=== PATIENT | male | born 1960 | race Caucasian/White ===

== ENCOUNTER 2017-11-27 17:14 | Emergency (ER) | payer BC ==
[2017-11-27] MEDS ORDERED: ASPIRIN 81 MG CHEWABLE TABLET PO ONE (17:20)
[2017-11-27] MEDS ORDERED: 0.9 % SODIUM CHLORIDE 1,000 ML BAG IV ONE (17:21)
[2017-11-27] MEDS ORDERED: METOPROLOL TART 5 MG/5 ML VIAL IV ONE (17:28)
--- NOTE | 2017-11-27 17:28 | Emergency Department Record ---
History of Present Illness - General Chief Complaint: Rapid heartbeat Stated Complaint: HIGH BLOOD PRESSURE,ELEVATED HEART RATE Time Seen by Provider: 11/27/17 17:20 Source: Patient, RN notes reviewed - History of Present Illness Initial Comments: patient felt dizzy at 11:30 am today and laid down and felt better and he drove fome and his brought him to the ED. He admits to 5 beers a day and 2-3 whiskey drinks and he denies smoking cigs but smokes marijuana. Hasn't seen a DrShelley in 10 years and no chest pain just dizzy with walking. - Related Data Home Medications Medication Instructions Recorded Confirmed Last Taken No Home Med [NO HOME MEDS] 11/27/17 11/27/17 Unknown Allergies Allergy/AdvReac Type Severity Reaction Status Date / Time No Known Drug Allergies Allergy Verified 11/27/17 17:47 Review of Systems Reviewed: No additional complaints except as noted below Constitutional: Reports: As per HPI. Denies: Chills, Fever, Malaise, Night sweats, Weakness, Weight change Eyes: Reports: As per HPI. Denies: Eye discharge, Eye pain, Photophobia, Vision change ENT: Reports: As per HPI. Denies: Congestion, Dental pain, Ear pain, Epistaxis , Hearing loss, Throat pain Respiratory: Reports: As per HPI, Dyspnea. Denies: Cough, Hemoptysis, Stridor, Wheezes Cardiovascular: Reports: As per HPI, Palpitations. Denies: Arrhythmia, Chest pain, Dyspnea on exertion, Edema, Murmurs, Orthopnea, Paroxysmal nocturnal dyspnea, Rheumatic Fever, Syncope Endocrine: Reports: As per HPI, Fatigue. Denies: Heat or cold intolerance, Polydipsia, Polyuria Gastrointestinal: Reports: As per HPI. Denies: Abdominal pain, Constipation, Diarrhea, Hematemesis, Hematochezia, Melena, Nausea, Vomiting Genitourinary: Reports: As per HPI. Denies: Dysuria, Frequency, Hematuria, Incontinence, Retention, Testicular pain, Testicular mass, Urgency Musculoskeletal: Reports: As per HPI. Denies: Arthralgia, Back pain, Gout, Joint swelling, Myalgia, Neck pain Skin: Reports: As per HPI. Denies: Bruising, Change in color, Change in hair/ nails, Lesions, Pruritus, Rash Neurological: Reports: As per HPI. Denies: Abnormal gait, Confusion, Headache, Numbness, Paresthesias, Seizure, Tingling, Tremors, Vertigo, Weakness Psychiatric: Reports: As per HPI. Denies: Anxiety, Auditory hallucinations, Depression, Homicidal thoughts, Suicidal thoughts, Visual hallucinations Hematological/Lymphatic: Reports: As per HPI. Denies: Anemia, Blood Clots, Easy bleeding, Easy bruising, Swollen glands Physical Exam - General General Appearance: Alert, Oriented x3, Cooperative, Mild distress - Head Head exam: Normal inspection - Eye Eye exam: Normal appearance, PERRL Pupils: Normal accommodation - ENT ENT exam: Normal exam, Mucous membranes moist, Normal external ear exam, Normal orophraynx, TM's normal bilaterally Ear exam: Normal external inspection. negative: External canal tenderness Nasal Exam: Normal inspection. negative: Discharge, Sinus tenderness Mouth exam: Normal external inspection, Tongue normal Teeth exam: Normal inspection. negative: Dental caries Throat exam: Normal inspection. negative: Tonsillar erythema, Tonsillar exudate - Neck Neck exam: Normal inspection, Full ROM. negative: Tenderness - Respiratory Respiratory exam: Normal lung sounds bilaterally. negative: Respiratory distress - Cardiovascular Cardiovascular Exam: Regular rate, Normal rhythm, Normal heart sounds - GI/Abdominal GI/Abdominal exam: Soft, Normal bowel sounds. negative: Tenderness - Rectal Rectal exam: Deferred - exam: Deferred - Extremities Extremities exam: Normal inspection, Full ROM, Normal capillary refill. negative: Tenderness - Back Back exam: Reports: Normal inspection, Full ROM. Denies: Muscle spasm, Rash noted, Tenderness - Neurological Neurological exam: Alert, Normal gait, Oriented X3, Reflexes normal - Psychiatric Psychiatric exam: Normal affect, Normal mood - Skin Skin exam: Dry, Intact, Normal color, Warm Course - Reevaluation(s) Reevaluation #1: discussed case with Dr. Sheppard. 11/27/17 17:55 Reevaluation #2: discussed case with Dr. St and will transfer to [facility]. 11/27/17 18:37 Medical Decision Making - Data Complexity MDM Data: Labs Ordered and/or Reviewed, X-Ray Ordered and/or Reviewed, EKG Ordered and/or Reviewed (first Ekg atrial flutter fast rate , second EKG atrial flutter rate slowed and 2:1) - Lab Data Result diagrams: 11/27/17 17:30 11/27/17 17:30 Disposition Clinical Impression: Tachycardia, Alcoholism Atrial flutter Qualifiers: Atrial flutter type: typical Qualified Code(s): I48.3 - Typical atrial flutter Disposition: Acute Care Hospital Transfer Condition: (2) Stable Forms: Patient Portal Access Time of Disposition: 18:43 Quality - Quality Measures Quality Measures: N/A - Blood Pressure Screening Does Patient Have Any of the Following: No Blood Pressure Classification: Hypertensive Reading Systolic Measurement: 136 Diastolic Measurement: 99 Screening for High Blood Pressure: < Pre-Hypertensive BP, F/U Documented > [ G8950] Pre-Hypertensive Follow-up Interventions: Referral to alternative/primary care provider.
[2017-11-27 17:35] LABS: BASO % 0.4 % (0-6); EOS % 0.2 % (0-6); GRAN % 75.6 % (47-80); HEMATOCRIT 47.1 % (42.0-52.0); HEMOGLOBIN 15.6 gm/dl (14.0-18.0); LYMPH % 15.8 % (16-45); MEAN CELL VOLUME 97.5 fl (81-97); MEAN CORPUSCULAR HEMOGLOBIN 32.3 pg (27-33); MEAN CORPUSCULAR HGB CONC 33.1 g/dl (32-36); MEAN PLATELET VOLUME 10.2 fl (7.4-10.4); PLATELET COUNT 239 K/uL (130-400); RED BLOOD COUNT 4.83 M/uL (4.40-5.70); RED CELL DISTRIBUTION WIDTH 13.5 % (11.5-14.5); WHITE BLOOD COUNT W/O DIFF 8.1 K/uL (4.2-12.2)
[2017-11-27] MEDS ORDERED: DILTIAZEM 25MG/5ML VIAL IV ONE ×2 (17:49→19:09)
[2017-11-27 17:50] LABS: BLOOD UREA NITROGEN 15 mg/dL (6-20); CREATININE 0.9 mg/dL (0.7-1.2); EST GLOMERULAR FILTRATION RATE > 60 mL/min; PARTIAL THROMBOPLASTIN TIME 26.5 SECONDS (24.5-39.1)
[2017-11-27 17:53] LABS: GLUCOSE,RANDOM 90 mg/dL (74-109)
[2017-11-27] MEDS ORDERED: HEPARIN SODIUM 1000 UNIT/1 ML 10ML VIAL IVP ONE (17:53)
[2017-11-27] MEDS ORDERED: THIAMINE HCL IV 100 MG in 0.9 % SODIUM CHLORIDE 1000ML 1,000 ML IV SCH (18:00)
[2017-11-27 18:32] LABS: ALBUMIN 4.7 g/dL (4.0-5.0); BILIRUBIN,DIRECT 0.2 mg/dL (0-0.3); BILIRUBIN,TOTAL 0.6 mg/dL (0.2-1.0); TOTAL PROTEIN 7.7 g/dL (6.6-8.7)
[2017-11-27] MEDS ORDERED: HEPARIN SODIUM/D5W 25,000 UNITS/500 ML BAG IV SCH (18:45)
[2017-11-27] MEDS ORDERED: DILTIAZEM HCL 125 MG in 0.9 % SODIUM CHLORIDE 100ML 100 ML IV SCH (19:15)
--- NOTE | 2017-11-29 13:09 | RADIOLOGY REPORT ---
EXAM: PORTABLE CHEST HISTORY: TACHYCARDIA. TECHNIQUE: AP portable view of the chest was obtained. Comparison: None. FINDINGS: The heart size is normal. The lungs appear clear of acute infiltrate. No pleural effusion or pneumothorax evident. There is a small rounded density overlying the right mid chest. Without a lateral view it is difficult to determine if this was actually within the chest or overlying either the anterior or posterior aspect of the right mid hemithorax and clinical correlation is suggested. Apical pleural thickening bilaterally. IMPRESSION: 1. SMALL ROUNDED METALLIC BB LIKE DENSITY OVERLYING THE RIGHT MID HEMITHORAX OF UNCERTAIN SIGNIFICANCE ALTHOUGH A SMALL FOREIGN BODY CANNOT BE EXCLUDED. THIS COULD ALSO BE AN ARTIFACT OVERLYING THE PATIENT. 2. NO ACUTE INFILTRATE EVIDENT. SOME APICAL PLEURAL THICKENING BILATERALLY. JOB NUMBER: [id number] MTDD
== END 2017-11-27 20:59 | disposition short-term general hospital (02) ==
LOC: ER 17:14
DX: I47.1 Supraventricular tachycardia (principal); R42 Dizziness and giddiness; F10.20 Alcohol dependence, uncomplicated
CPT/HCPCS: 71045; 80048; 80076; 80320; 84443; 84484; 85025; 85379; 85730; 93005; 93010; 96365; 96366; 96368; 96375; 99285; J3411; J7030

== ENCOUNTER 2017-12-15 16:41 | Observation (INO) | payer BC ==
--- NOTE | 2017-12-15 17:01 | Emergency Department Record ---
History of Present Illness - General Chief Complaint: Syncope Stated Complaint: LIGHTHEADED Time Seen by Provider: 12/15/17 16:52 Source: Patient, Family Mode of Arrival: EMS Limitations: No limitations - History of Present Illness Initial Comments: The patient is here due to having a syncopal episode while shooting pool a half hour ago. He was sitting on a stool and suddenly felt lightheaded and weak and became pale. His was with him and noticed what was happening and caught him before he could fall off the stool. She then held him for 3-5 minutes and tried to get him to wake up. EMS was called and after about 5 minutes the patient started to wake up. After waking he denied any pain, discomfort, SOB, sweating or nausea. The patient does deny any CP, SOB, or MEJÍA prior to the syncopal event and has had no recent illnesses. He did have an episode of rapid Afib about 2.5 weeks ago and was admitted to the hospital for it but converted spontaneously. He did have a normal 2D echo per his on that visit. After EMS arrived on scene the patient was awake and alert and there first BP was 90 systolic. MD Complaint: Collapsed, [place] faint Onset/Timin -: Minutes(s) Prodromal Symptoms: None Duration of Episode: 5 -: Minutes(s) Injuries Sustained Associated with Event: None History: Previous syncopal episode - R[place] Coma Scale Eye Response: (4) Open spontaneously Motor Response: (6) Obeys commands Verbal Response: (5) Oriented [place] Total: 15 - Related Data Home Medications Medication Instructions Recorded Confirmed Last Taken Aspirin [Aspirin EC] 81 mg PO DAILY 12/15/17 12/15/17 1 Day Ago ~12/14/17 Diltiazem HCl [Cardizem Cd] 180 mg PO DAILY 12/15/17 12/15/17 1 Day Ago ~12/14/17 Ondansetron [Zofran Odt] 4 mg PO Q8H 12/15/17 12/15/17 Unknown Allergies Allergy/AdvReac Type Severity Reaction Status Date / Time No Known Drug Allergies Allergy Verified 12/15/17 16:53 Travel Screening - Travel/Exposure Within Last 30 Days Have you traveled within the last 30 days?: No - Travel/Exposure Within Last Year Have you traveled outside the [place] in the last year?: No - Additonal Travel Details Have you been exposed to anyone with a communicable illness?: No - Travel Symptoms Symptom Screening: None Review of Systems Constitutional: Denies: Chills, Fever Eyes: Denies: Eye discharge ENT: Denies: Congestion Respiratory: Denies: Dyspnea Cardiovascular: Reports: Arrhythmia. Denies: Chest pain Endocrine: Reports: Fatigue Gastrointestinal: Denies: Abdominal pain Genitourinary: Denies: Dysuria Musculoskeletal: Denies: Back pain Neurological: Denies: Abnormal gait Past Medical History - SOCIAL HISTORY Smoking Status: Never smoker Alcohol Use: Occasional Alcohol Use Comment: none since 11/27 Drug Use: Rare, Occasional Drug Use Detail:: Marijuana - RESPIRATORY Hx Respiratory Disorders: Yes Hx Bronchitis: Yes - CARDIOVASCULAR Hx Cardio Disorders: No Hx Irregular Heartbeat: Yes (A-Fib new 11/27/17) Comment:: scheduled with Valarie 12/24 - NEURO Hx Neuro Disorders: No - GI Hx GI Disorders: Yes Hx Hiatal Hernia: Yes - Hx Genitourinary Disorders: No - ENDOCRINE Hx Endocrine Disorders: No - MUSCULOSKELETAL Hx Musculoskeletal Disorders: Yes - PSYCH Hx Psych Problems: No - HEMATOLOGY/ONCOLOGY Hx Hematology/Oncology Disorders: No Family Medical History Any Significant Family History?: Yes Hx Stroke: Mother *Stroke Comment: age 49 Physical Exam - General General Appearance: Alert, Oriented x3, Cooperative, No acute distress - Head Head exam: Atraumatic, Normocephalic, Normal inspection - Eye Eye exam: Normal appearance, PERRL, EOMI - ENT Throat exam: Normal inspection. negative: Tonsillar erythema, Tonsillar exudate - Neck Neck exam: Normal inspection, Full ROM. negative: Lymphadenopathy, Tenderness - Respiratory Respiratory exam: Normal lung sounds bilaterally. negative: Respiratory distress - Cardiovascular Cardiovascular Exam: Regular rate, Normal rhythm, Normal heart sounds - GI/Abdominal GI/Abdominal exam: Soft, Normal bowel sounds. negative: Tenderness - Extremities Extremities exam: Normal inspection, Full ROM, Normal capillary refill. negative: Tenderness - Neurological Neurological exam: Alert. negative: Motor sensory deficit - Psychiatric Psychiatric exam: negative: Anxious - Skin Skin exam: negative: Rash Course Vital Signs 12/15/17 16:43 Temperature 97.6 F Pulse Rate 71 Respiratory 20 Rate Blood Pressure 126/83 Pulse Ox 96 - Reevaluation(s) Reevaluation #1: The patient is doing very well at this time. He is resting comfortably with no Cp or SOB. I did discuss the need to monitor him in the hospital overnight and have Cardiology see him tomorrow and he did agree. I also did discuss the case with Dr. Benitez and she does agree to the admission. 12/15/17 17:50 Medical Decision Making - Data Complexity MDM Data: Labs Ordered and/or Reviewed, EKG Ordered and/or Reviewed - Lab Data Result diagrams: 12/15/17 17:10 12/15/17 17:10 - EKG Data -: EKG Interpreted by Me EKG: No Acute Changes, Normal EKG Disposition Disposition: Admit Clinical Impression: Syncope Qualifiers: Syncope type: unspecified Qualified Code(s): R55 - Syncope and collapse Disposition: Still a Patient at [facility] Decision to Admit: Admit from ER Decision to Admit Date: 12/15/17 Decision to Admit Time: 17:52 Accepting Physician: Eli Time Discussed w/Accepting Physician: 17:52 Condition: (2) Stable Forms: Patient Portal Access Time of Disposition: 17:52 Quality - Quality Measures Quality Measures: N/A - Blood Pressure Screening View Details: Yes Does Patient Have Any of the Following: No Blood Pressure Classification: Pre-Hypertensive BP Reading Systolic Measurement: 126 Diastolic Measurement: 83 Screening for High Blood Pressure: < Pre-Hypertensive BP, F/U Documented > [ G8950] Pre-Hypertensive Follow-up Interventions: Referral to alternative/primary care provider.
[2017-12-15 17:17] LABS: BASO % 0.4 % (0-6); EOS % 0.6 % (0-6); GRAN % 74.6 % (47-80); HEMATOCRIT 38.9 % (42.0-52.0); HEMOGLOBIN 12.6 gm/dl (14.0-18.0); LYMPH % 17.3 % (16-45); MEAN CELL VOLUME 99.2 fl (81-97); MEAN CORPUSCULAR HEMOGLOBIN 32.1 pg (27-33); MEAN CORPUSCULAR HGB CONC 32.4 g/dl (32-36); MEAN PLATELET VOLUME 10.2 fl (7.4-10.4); MONO % 7.1 % (0-9); PLATELET COUNT 219 K/uL (130-400); RED BLOOD COUNT 3.92 M/uL (4.40-5.70); RED CELL DISTRIBUTION WIDTH 12.9 % (11.5-14.5); WHITE BLOOD COUNT W/O DIFF 8.1 K/uL (4.2-12.2)
[2017-12-15 17:31] LABS: BILIRUBIN,TOTAL < 0.20 mg/dL (0.2-1.0); BLOOD UREA NITROGEN 15 mg/dL (6-20); EST GLOMERULAR FILTRATION RATE > 60 mL/min
[2017-12-15 17:32] LABS: TOTAL PROTEIN 6.5 g/dL (6.6-8.7)
[2017-12-15 17:34] LABS: GLUCOSE,RANDOM 113 mg/dL (74-109)
[2017-12-15 17:36] LABS: ALT/SGPT 16 U/L (<41); AST/SGOT 18 U/L (10.0-50.0)
[2017-12-15 17:37] LABS: ALB/GLOB RATIO 1.7 (1.1-1.8); ALBUMIN 4.1 g/dL (4.0-5.0); ALKALINE PHOSPHATASE 38 U/L (40-129); CREATINE PHOSPHOKINASE 114 U/L (39-308)
[2017-12-15 17:39] LABS: CKMB 1.9 ng/mL (<6.73)
[2017-12-15] MEDS ORDERED: ACETAMINOPHEN 500 MG TABLET PO PRN (19:10)
[2017-12-15] MEDS: ONDANSETRON 4 MG ODT TABLET PO SCH (19:51)
[2017-12-15 23:44] LABS: CKMB 1.7 ng/mL (<6.73)
[2017-12-16] MEDS: ONDANSETRON 4 MG ODT TABLET PO SCH ×2 (04:55→12:41)
[2017-12-16 06:49] LABS: BASO % 0.4 % (0-6); GRAN % 75.3 % (47-80); HEMATOCRIT 40.4 % (42.0-52.0); HEMOGLOBIN 12.8 gm/dl (14.0-18.0); LYMPH % 17.3 % (16-45); MEAN CELL VOLUME 99.3 fl (81-97); MEAN CORPUSCULAR HEMOGLOBIN 31.4 pg (27-33); MEAN CORPUSCULAR HGB CONC 31.7 g/dl (32-36); MEAN PLATELET VOLUME 10.1 fl (7.4-10.4); PLATELET COUNT 245 K/uL (130-400); RED BLOOD COUNT 4.07 M/uL (4.40-5.70); RED CELL DISTRIBUTION WIDTH 13.1 % (11.5-14.5); WHITE BLOOD COUNT W/O DIFF 6.9 K/uL (4.2-12.2)
[2017-12-16 07:11] LABS: CKMB 1.3 ng/mL (<6.73)
[2017-12-16] MEDS ORDERED: DILTIAZEM 180MG CR CAPSULE PO SCH (10:00)
[2017-12-16] MEDS ORDERED: ASPIRIN 81 MG TABEC PO SCH (10:00)
[2017-12-16] MEDS ORDERED: ONDANSETRON 4 MG ODT TABLET PO PRN (12:39)
--- NOTE | 2017-12-16 13:45 | History & Physical ---
History of Present Illness - Date of Service Date of Service for History & Physical: 12/16/17 - History of Present Illness Admitting Diagnosis: 1. Acute Syncope, R/O Arrythmia History of Present Illness: PMHx: A-fib, tobacco chewer ED course: Pt states that yesterday he went to play pool. He walked in to the facility and sat down on a stool. He then passed out and didn't remember what happened when he awoke. After the episode he felt like he had a cold sweat - the only other time he felt this way was when he was in a-fib 2 weeks ago and had near - syncope. He states that he was newly diagnosed with a-fib 2 weeks ago and was started on cardizem and baby aspirin. He states they also did an echo at the time - per the echo was normal. He spontaneously went back into normal sinus rhythm prior to D/C. His states that when the pt sat down on the stool someone had asked him a question but he had a "blank stare and looked pale". She then pushed him up to prevent him from falling forward and he proceeded to close his eyes and his head dropped downwards. She stated that she "smacked him a few times trying to wake him up" but he didn't respond for 2-3 minutes. EMS was called. When he woke up he was not confused at all, just wondered what had happened. She denies that he was shaking during the event. The pt denies any palpitations, CP, nausea, vomiting, blurred vision, SOB, confusion prior or after the event occurred. VS: wnl Labs: CBC/ CMP overall unremarkable. Trop - x 3. EKG: NSR Pt was placed on tele and admitted for further observation and C/S with cardiology. Today Pt denies any symptoms today. He has no complaints. Travel Screening - Travel/Exposure Within Last 30 Days Have you traveled within the last 30 days?: No - Travel/Exposure Within Last Year Have you traveled outside the [place] in the last year?: No - Additonal Travel Details Have you been exposed to anyone with a communicable illness?: No - Travel Symptoms Symptom Screening: None Review of Systems Constitutional: Denies: Chills, Fever, Malaise, Weakness Eyes: Denies: Eye discharge ENT: Denies: Congestion, Ear pain Respiratory: Denies: Cough, Dyspnea, Wheezes Cardiovascular: Reports: Arrhythmia, Syncope. Denies: Chest pain, Murmurs, Palpitations Endocrine: Denies: Fatigue Gastrointestinal: Denies: Abdominal pain, Constipation, Diarrhea, Melena, Nausea , Vomiting Genitourinary: Denies: Dysuria, Frequency Musculoskeletal: Denies: Back pain Neurological: Denies: Abnormal gait, Confusion, Headache, Seizure, Vertigo, Weakness Psychiatric: Denies: Anxiety, Depression Past Medical History - SOCIAL HISTORY Smoking Status: Never smoker - RESPIRATORY Hx Respiratory Disorders: Yes Hx Bronchitis: Yes - CARDIOVASCULAR Hx Cardio Disorders: No Hx Irregular Heartbeat: Yes (A-Fib new 11/27/17) Comment:: scheduled with Valarie 12/24 - NEURO Hx Neuro Disorders: No - GI Hx GI Disorders: Yes Hx Hiatal Hernia: Yes - Hx Genitourinary Disorders: No - ENDOCRINE Hx Endocrine Disorders: No - MUSCULOSKELETAL Hx Musculoskeletal Disorders: Yes - PSYCH Hx Psych Problems: No - HEMATOLOGY/ONCOLOGY Hx Hematology/Oncology Disorders: No Family Medical History Any Significant Family History?: Yes Hx Stroke: Mother *Stroke Comment: age 49 H&P Meds/Allergies - Allergies Allergies: Allergies Allergy/AdvReac Type Severity Reaction Status Date / Time No Known Drug Allergies Allergy Verified 12/15/17 16:53 - Home Medications Home Medications Medication Instructions Recorded Confirmed Last Taken Aspirin [Aspirin EC] 81 mg PO DAILY 12/15/17 12/15/17 1 Day Ago ~12/14/17 Diltiazem HCl [Cardizem Cd] 180 mg PO DAILY 12/15/17 12/15/17 1 Day Ago ~12/14/17 Ondansetron [Zofran Odt] 4 mg PO Q8H 12/15/17 12/15/17 Unknown - Active Medications Active Medications: Current Medications Acetaminophen (Tylenol 500mg Tab) 500 mg PO Q6H PRN PRN Reason: PAIN - MILD(1-4)/FEVER Aspirin (Ecotrin (Ec)) 81 mg PO DAILY [facility] Last Admin: 12/16/17 10:22 Dose: 81 mg Diltiazem HCl (Cardizem Cd) 180 mg PO DAILY [facility] Last Admin: 12/16/17 10:22 Dose: 180 mg Ondansetron HCl (Zofran Odt) 4 mg PO Q8H PRN PRN Reason: NAUSEA Physical Exam - Vital Signs Vital Signs: Vital Signs - Last 24 Hrs Temp Pulse Pulse Pulse Resp BP BP 12/16/17 08:19 98.4 F 65 18 117/73 12/16/17 08:12 71 18 12/16/17 05:10 97.9 F 61 18 107/71 12/15/17 21:10 98.4 F 65 16 119/73 12/15/17 20:46 67 16 12/15/17 18:36 68 16 12/15/17 18:15 98.2 F 63 18 114/82 12/15/17 17:44 72 16 115/79 12/15/17 16:43 97.6 F 71 20 126/83 Pulse Ox 12/16/17 08:19 97 12/16/17 08:12 12/16/17 05:10 98 12/15/17 21:10 97 12/15/17 20:46 12/15/17 18:36 12/15/17 18:15 96 12/15/17 17:44 97 12/15/17 16:43 96 - General General Appearance: Alert, Oriented x3, Cooperative, No acute distress Limitations: No limitations - Head Head exam: Atraumatic, Normocephalic, Normal inspection - Eye Eye exam: Normal appearance, EOMI - ENT ENT exam: Normal exam Nasal Exam: Normal inspection Mouth exam: Normal external inspection Throat exam: Normal inspection - Neck Neck exam: Normal inspection, Full ROM. negative: Lymphadenopathy, Tenderness - Respiratory Respiratory exam: Normal lung sounds bilaterally. negative: Respiratory distress - Cardiovascular Cardiovascular Exam: Regular rate, Normal rhythm, Normal heart sounds - GI/Abdominal GI/Abdominal exam: Soft, Normal bowel sounds. negative: Tenderness - Rectal Rectal exam: Deferred - exam: Deferred - Extremities Extremities exam: Normal inspection, Full ROM, Normal capillary refill. negative: Pedal edema, Tenderness - Neurological Neurological exam: Alert, Oriented X3. negative: Motor sensory deficit - Psychiatric Psychiatric exam: negative: Anxious, Depressed - Skin Skin exam: negative: Cyanosis, Rash Results - Labs Result Diagrams: 12/16/17 06:36 12/15/17 17:10 Labs Last 24 Hours: Laboratory Results - last 24 hr 12/15/17 12/15/17 12/15/17 17:10 17:10 23:05 WBC 8.1 RBC 3.92 L Hgb 12.6 L Hct 38.9 L MCV 99.2 H MCH 32.1 MCHC 32.4 RDW 12.9 Plt Count 219 MPV 10.2 Gran % 74.6 Lymphocytes % 17.3 Monocytes % 7.1 Eosinophils % 0.6 Basophils % 0.4 Sodium 139 Potassium 4.1 Chloride 100 Carbon Dioxide 30.0 H Anion Gap 9.0 BUN 15 Creatinine 1.0 Estimated GFR > 60 Random Glucose 113 H Calcium 8.7 Magnesium Total Bilirubin < 0.20 L AST 18 ALT 16 Alkaline Phosphatase 38 L Creatine Kinase 114 CK-MB (CK-2) 1.9 1.7 Troponin T < 0.010 < 0.010 Total Protein 6.5 L Albumin 4.1 Globulin 2.4 Albumin/Globulin Ratio 1.7 12/16/17 12/16/17 12/16/17 06:36 06:36 06:36 WBC 6.9 RBC 4.07 L Hgb 12.8 L Hct 40.4 L MCV 99.3 H MCH 31.4 MCHC 31.7 L RDW 13.1 Plt Count 245 MPV 10.1 Gran % 75.3 Lymphocytes % 17.3 Monocytes % 6.0 Eosinophils % 1.0 Basophils % 0.4 Sodium Potassium Chloride Carbon Dioxide Anion Gap BUN Creatinine Estimated GFR Random Glucose Calcium Magnesium 2.1 Total Bilirubin AST ALT Alkaline Phosphatase Creatine Kinase CK-MB (CK-2) 1.3 Troponin T < 0.010 Total Protein Albumin Globulin Albumin/Globulin Ratio VTE H&P Assessment - Risk for VTE Risk for VTE: Yes Risk Level: Low (SCD's in bed) Risk Assessment Date: 12/16/17 Risk Assessment Time: 14:45 VTE Orders Placed or Will Be Placed: Yes Plan - Detailed Diagnosis and Plan (1) Syncope Current Visit: Yes Status: Acute Base Code: R55 - SYNCOPE AND COLLAPSE Priority: High Comment: - Likely 2/2 to heart going in and out of a-fib. - Not cx based on hx for seizure, cataplexy, vasovagal - Cardio c/s'd. - ID ruled out with trops and normal EKG. (2) Paroxysmal A-fib Current Visit: Yes Status: Acute Base Code: I48.0 - PAROXYSMAL ATRIAL FIBRILLATION Comment: - Continue aspirin and cardizem as prescribed. - cardio c/s'd - Tele on - Mag normal - Disposition Pending cardio recs.
--- NOTE | 2017-12-16 16:51 | Discharge Summary ---
Providers Discharge Summary Date: 12/16/17 Date of admission: 12/15/17 18:01 Expected Date of Discharge: 12/16/17 Attending physician: EMMANUEL ZEPEDA M.D. Consults: Consult Orders 12/16/17 08:02 Consult - Cardiology NOW Consulting Provider: NAVARRO CARDENAS Physician Instructions: can see pa Reason For Exam: syncope hx of a-fib Does pt have current crank hand?: Georges Physical Exam - Vital Signs Vital Signs: Vital Signs - Last 24 Hrs Temp Pulse Pulse Resp BP Pulse Ox 12/16/17 13:00 98.8 F 64 18 103/58 96 12/16/17 08:19 98.4 F 65 18 117/73 97 12/16/17 08:12 71 18 12/16/17 05:10 97.9 F 61 18 107/71 98 12/15/17 21:10 98.4 F 65 16 119/73 97 12/15/17 20:46 67 16 12/15/17 18:36 68 16 12/15/17 18:15 98.2 F 63 18 114/82 96 12/15/17 17:44 72 16 115/79 97 - General General Appearance: Alert, Oriented x3, Cooperative, No acute distress Limitations: No limitations - Head Head exam: Atraumatic, Normocephalic, Normal inspection - Eye Eye exam: Normal appearance, EOMI - ENT ENT exam: Normal exam Nasal Exam: Normal inspection Mouth exam: Normal external inspection Throat exam: Normal inspection - Neck Neck exam: Normal inspection, Full ROM. negative: Lymphadenopathy, Tenderness - Respiratory Respiratory exam: Normal lung sounds bilaterally. negative: Respiratory distress - Cardiovascular Cardiovascular Exam: Regular rate, Normal rhythm, Normal heart sounds - GI/Abdominal GI/Abdominal exam: Soft, Normal bowel sounds. negative: Tenderness - Rectal Rectal exam: Deferred - exam: Deferred - Extremities Extremities exam: Normal inspection, Full ROM, Normal capillary refill. negative: Pedal edema, Tenderness - Neurological Neurological exam: Alert, Oriented X3. negative: Motor sensory deficit - Psychiatric Psychiatric exam: negative: Anxious, Depressed - Skin Skin exam: negative: Cyanosis, Rash Hospitalization - Hospitalization Admission Diagnosis: 1. Acute Syncope, R/O Arrythmia - Problem List/Discharge Diagnosis (1) Syncope Current Visit: Yes Status: Acute Base Code: R55 - SYNCOPE AND COLLAPSE Comment: - Likely 2/2 to heart going in and out of a-fib. - Not cx based on hx for seizure, cataplexy, vasovagal - Cardio c/s'd and stated that they will put on 48 hour holter and to continue cardizem. F/u appointment scheduled. - NC ruled out with trops and normal EKG. (2) Paroxysmal A-fib Current Visit: Yes Status: Acute Base Code: I48.0 - PAROXYSMAL ATRIAL FIBRILLATION Comment: - Continue aspirin and cardizem as prescribed. - cardio c/s'd - Tele on - Mag normal - Disposition Pending cardio recs. - Hospitalization Course Disposition: Home, Self-Care Hospital Course: PMHx: A-fib, tobacco chewer ED course: Pt states that yesterday he went to play pool. He walked in to the facility and sat down on a stool. He then passed out and didn't remember what happened when he awoke. After the episode he felt like he had a cold sweat - the only other time he felt this way was when he was in a-fib 2 weeks ago and had near - syncope. He states that he was newly diagnosed with a-fib 2 weeks ago and was started on cardizem and baby aspirin. He states they also did an echo at the time - per the echo was normal. He spontaneously went back into normal sinus rhythm prior to D/C. His states that when the pt sat down on the stool someone had asked him a question but he had a "blank stare and looked pale". She then pushed him up to prevent him from falling forward and he proceeded to close his eyes and his head dropped downwards. She stated that she "smacked him a few times trying to wake him up" but he didn't respond for 2-3 minutes. EMS was called. When he woke up he was not confused at all, just wondered what had happened. She denies that he was shaking during the event. The pt denies any palpitations, CP, nausea, vomiting, blurred vision, SOB, confusion prior or after the event occurred. VS: wnl Labs: CBC/ CMP overall unremarkable. Trop - x 3. EKG: NSR Pt was placed on tele and admitted for further observation and C/S with cardiology. Hospital course: Pt was asymptomatic during his stay. Cardiology was consulted and believe he may be going in and out of a-fib. Recommended 48 hour holter that was put on prior to D/C, continue cardizem as prescribed, and f/u at his scheduled appointment. Pt stable for discharge. Procedures: Cardiology Procedures 12/15/17 16:54 Key Ringer NOW EKG NOW 12/15/17 19:10 Key Ringer .Continuous EKG QDX2@0600 12/16/17 16:07 Holter Monitor NOW 12/16/17 16:08 Cardiolite MPI w/exercise stre ONCE Abnormal Labs: Abnormal Lab Results 12/15/17 12/15/17 12/16/17 Range/Units 17:10 17:10 06:36 RBC 3.92 L 4.07 L (4.40-5.70) M/uL Hgb 12.6 L 12.8 L (14.0-18.0) gm/dl Hct 38.9 L 40.4 L (42.0-52.0) % MCV 99.2 H 99.3 H (81-97) fl MCHC 31.7 L (32-36) g/dl Carbon Dioxide 30.0 H (22-29) mmol/L Random Glucose 113 H (74-109) mg/dL Total Bilirubin < 0.20 L (0.2-1.0) mg/dL Alkaline Phosphatase 38 L (40-129) U/L Total Protein 6.5 L (6.6-8.7) g/dL Condition at Discharge: (1) Good VTE Discharge VTE Reason For No Overlap Therapy: Not Indicated Discharge Medications - Discharge Medications Home Medications: Ambulatory Orders Aspirin [Aspirin EC] 81 mg PO DAILY 12/15/17 [Last Taken 1 Day Ago ~12/14/17] Diltiazem HCl [Cardizem Cd] 180 mg PO DAILY 12/15/17 [Last Taken 1 Day Ago ~11/23] Ondansetron [Zofran Odt] 4 mg PO Q8H 12/15/17 [Last Taken Unknown] Discharge Plan - Discharge Instructions Diet at Discharge: Regular Diet Additional Instructions: Follow up with cardiology as scheduled. Continue medications as prescribed. Quality Measures - Quality Measures Quality Measures: Atrial Fibrillation & Atrial Flutter: Chronic Anticoagulation Therapy, Documentation of Current Medications in Medical Record, Screening for High Blood Pressure and F/U Documented - Current Medications Quality Measure: Measure #130: Documentation of Current Medications Documentation of Current Medications: <Current Medications Documented/Reviewed> [G8427] - Blood Pressure Screening Quality Measure: Screening for High Blood Pressure and Follow-Up Documented Does Patient Have Any of the Following: No Blood Pressure Classification: Pre-Hypertensive BP Reading Systolic Measurement: 126 Diastolic Measurement: 83 Screening for High Blood Pressure: < Normal BP, F/U Not Required > [G8783] - Atrial Fibrillation and Atrial Flutter Quality Measure: Atrial Fibrillation & Atrial Flutter: Chronic Anticoagulation Therapy Does Patient Have Any of the Following: No CHADS2 Risk Stratification: No Risk Factors Risk Stratification Summary: No risk factors or only one moderate risk factor exists. [G8970] Anticoagulation Therapy: Patient Not Eligible [G8970] - Elder Abuse Suspicion Index EASI Reference Information: Tamika GORDON, Jeremy C, Janette D, Дмитрий Bernard.Development and validation of a tool to assist physicians identification of elder abuse: The Elder Abuse Suspicion Index (EASI ). Journal of Elder Abuse and Neglect, 2008; 20 (3): 276-300.
--- NOTE | 2017-12-17 18:24 | Medical Records Consult ---
DATE: 12/16/2017 CONSULTING: HIMANSHU FIORE HISTORY OF PRESENT ILLNESS: Mr. Suazo is a very pleasant 57-year-old male with past medical history of paroxysmal atrial fibrillation/flutter. He had been feeling lightheaded and dizzy so his checked his vitals and noticed his heart rate to beat irregularly when he was first diagnosed. He was evaluated at [facility] at that time and was found to be in atrial flutter with rapid ventricular response. He was started on a Cardizem drip and converted to a normal sinus rhythm on his own after he was transferred to [facility]. He was discharged home with Cardizem CD 180 mg as well as Aspirin 81 mg. His CHADS-VASc score is 0. Echocardiogram during that admission two weeks ago demonstrated preserved LV function with mild LVH, mild MR, and enlarged left atrial side. Patient denies a previous history of hypertension, hyperlipidemia, and diabetes. His mother had a CVA in her 40s and his uncle had an NE in his 50s. Prior to his recent admission, he was drinking 2 -5 beers daily as well as two shots of whiskey daily. He has also chewed tobacco since he was 14 years old but denies cigarette use. Since he was [place] [facility] [place], he had been feeling well up until yesterday. He was playing pool when he had an episode of syncope. Per , he had been sitting down on a stool when he started looking diaphoretic and pale and subsequently passed out. Loss of consciousness was noted to be 2-5 minutes. When EMS arrived, he was noted to be hypotensive but they are unsure if they noted him to be in atrial fibrillation or flutter. When he arrived to [facility], his EKG demonstrated normal sinus rhythm with a rate of 72 beats per minute. His blood pressure has been stable at 119/73 mmHg. Laboratory results were reviewed and there are no significant abnormalities. Troponin has been negative x2. Today, patient is feeling well and he has had no further episodes of presyncope or syncope. He denies chest pain, shortness of breath, lightheadedness, dizziness, palpitations, PND, orthopnea, and peripheral edema. He has quit drinking alcohol since he was discharged home from [facility] two weeks ago. He states that he is staying well- hydrated. He denies any recent sicknesses as well as fever, fatigue, and chills. ALLERGIES: NO KNOWN DRUG ALLERGIES. MEDICATIONS: He is taking; Aspirin 81 mg mg daily Cardizem CD 180 mg daily PAST MEDICAL HISTORY: Paroxysmal atrial fibrillation and flutter. SOCIAL HISTORY: Reports chewing tobacco use, denies cigarette use, prior daily alcohol use, denies illicit drug use. FAMILY HISTORY: Mother had a CVA in her 40s. Uncle had an NE in his 50s. REVIEW OF SYSTEMS: CONSTITUTIONAL; positive for syncope. Denies fevers, chills, sweats, lightheadedness, dizziness. EYE; no recent visual problems. EARS, NOSE, MOUTH, AND THROAT; no ear pain, nasal congestion, sore throat. RESPIRATORY; no shortness of breath, cough. CARDIOVASCULAR; denies chest pain, shortness of breath, palpitations, PND, orthopnea, syncope. PERIPHERAL VASCULAR; no peripheral edema, claudication. GASTROINTESTINAL; denies nausea, vomiting, diarrhea. MUSCULOSKELETAL; denies back pain, neck pain, joint pain, muscle pain , decreased range of motion. INTEGUMENTARY; denies rash, pruritis, and abrasions. NEUROLOGIC; denies any weakness, paresthesias, vision changes. PSYCHIATRIC; no anxiety and depression. PHYSICAL EXAM: VITAL SIGNS: Heart rate 65 beats per minute, blood pressure 119/73 mmHg, temperature is 98.4 degrees Fahrenheit. Respiratory rate 16 breaths per minute, oxygen saturation 97%. GENERAL: Alert and oriented x3, well-nourished, in no acute distress. HEAD: Normocephalic, atraumatic. ENT: EOMI. PERRL. No scleral icterus, erythema, throat free from erythema and lesions. NECK: Supple, nontender, no carotid bruits, no JVD. RESPIRATORY: Clear to auscultation bilaterally. Nonlabored respiration. No wheezing, rhonchi, rales. CARDIAC: Regular rate and rhythm, no murmurs, rubs, or gallops audible. PERIPHERAL VASCULAR: No peripheral edema. No cyanosis, clubbing. Peripheral pulses 2+ and symmetric. ABDOMEN: Soft, nontender, nondistended, normal bowel sounds. SKIN: Skin is warm, dry, and pink. No rashes or lesions noted. MUSCULOSKELETAL: Normal range of motion of all four extremities. Normal gait. NEUROLOGIC: Awake, alert, and oriented x3. PSYCHIATRIC: Cooperative, appropriate mood and affect. LABS: White blood cell count 8.1, hemoglobin is 12.6, hematocrit 38.9, platelets 219. Sodium 139, potassium 4.1, chloride 100, CO2 is 30, BUN 15, creatinine 1, glucose 113. Troponin negative x2. ASSESSMENT: 1. SYNCOPE. 2. PAROXYSMAL ATRIAL FIBRILLATION AND FLUTTER. PLAN: The patient is a 57-year-old male with recently diagnosed paroxysmal atrial fibrillation and flutter. He was admitted to [facility] after an episode of syncope yesterday. He had been sitting on a stool when he, per , became diaphoretic and pale and subsequently passed out. Loss of consciousness was noted to be 2-5 minutes. Patient denies any symptoms beforehand including; lightheadedness, dizziness, palpitations, but he is having difficulty recalling the event. When the patient regained consciousness he was not confused. denies any seizure activity. When he was first diagnosed with atrial fibrillation a couple of weeks ago, he was lightheaded and dizzy and his noted that his heart rate was irregular. Yesterday, upon arrival to the ED, his EKG demonstrated normal sinus rhythm with a rate of 72 beats per minute. His blood pressure has been stable at 119/73 mmHg. Laboratory results have been reviewed and there are no significant abnormalities. Troponin has been negative x2. Recent echocardiogram demonstrated preserved LV function with a mild LVH, mild MR, and enlarged left atrial size. He is scheduled to see Dr. Sheppard next week. We will plan for a stress Cardiolite prior to that appointment. We will also plan for a 48-hour Holter monitor to evaluate how often the patient is going in and out of A-fib. Patient is okay to be discharged from a cardiology standpoint. cc: Dean Sheppard M.D. JOB NUMBER: [id number] MTDD
== END 2017-12-16 18:10 | disposition home or self-care (01) ==
LOC: ER 16:41 → MEDSURG 18:01
PROVIDERS: ADMIT Family Medicine; ATTEND Family Medicine
DX: R55 Syncope and collapse (principal); I48.0 Paroxysmal atrial fibrillation; K44.9 Diaphragmatic hernia without obstruction or gangrene
CPT/HCPCS: 80053; 82550; 82553; 83735; 84484; 85025; 93005; 93010; 93225; 93226; 99220; 99285

== ENCOUNTER 2018-03-21 12:50 | Day surgery (SDC) | payer BC ==
[2018-03-21] MEDS ORDERED: PROPOFOL 10 MG/ML VIAL IV ONE (12:51)
[2018-03-21] MEDS ORDERED: LIDOCAINE 2% MDV (20MG/ML) 20ML VIAL IV ONE (12:51)
--- NOTE | 2018-03-26 12:30 | Operative Note ---
DATE OF SURGERY: 03/21/2018 SURGEON: Mary Abel MD OPERATION: COLONOSCOPY. INDICATIONS: This is a 57-year-old male with average risk for colorectal cancer who presented for screening colonoscopy. POSTOPERATIVE DIAGNOSES: 1. A 3 mm descending colon polyp that was removed by cold biopsy forceps. 2. Otherwise normal colon. ANESTHESIA: Sedation is per Anesthesia. Pulse oximetry was monitored throughout the procedure to maintain O2 saturation of 90% or greater. Supplemental oxygen was administered via nasal cannula. Cardiac and vital signs were monitored throughout the duration of the procedure, and they were stable. The procedure of colonoscopy and risks and alternatives of the procedure, including the risk of bleeding and perforation, among others, were explained to the patient who voiced understanding and agreed to have the procedure done. Physical examination was performed, and the patient was found stable for sedation. PROCEDURE: The patient was placed in the left lateral position. Sedation was initiated. A digital rectal exam was performed and showed some mild external hemorrhoids with no palpable rectal masses. An Olympus PCF-180AL colonoscope was then inserted into the rectum under direct visualization. It was advanced to the cecum without difficulty. The ileocecal valve and appendiceal orifice were identified and photographed. The colonic mucosa was carefully examined upon introduction of the colonoscope. In the descending colon was a 3 mm sessile polyp that was noted and was removed by cold biopsy forceps. There were no lesions noted. The colonoscope was then withdrawn while carefully examining the colonic mucosal surfaces. No other lesions were noted. In the rectum, retroflexion was performed and grade 1 internal hemorrhoids were noted. The colonoscope was then withdrawn and the procedure was terminated. The patient tolerated the procedure well without any immediate complications. The patient remained with stable vital signs and was transferred to the recovery room. RECOMMENDATIONS: 1. The patient should be on a high-fiber diet. 2. The patient is to have a repeat colonoscopy for surveillance in 5 or 10 years depending on the histology of the polyp. Thank you for allowing me to participate in the care of your patient. CC: DO SYEDA Campos
== END 2018-03-21 14:40 | disposition home or self-care (01) ==
LOC: HOP 12:50
PROVIDERS: ATTEND Internal Medicine Gastroenterology
DX: Z12.11 Encounter for screening for malignant neoplasm of colon (principal); K63.5 Polyp of colon

== ENCOUNTER 2019-04-13 08:31 | Day surgery (SDC) | payer BC ==
[~2019-04-13 08:31] MED LIST: ACETAMINOPHEN 1,000 MG/100 ML BTL IVPB ONE; CEFAZOLIN 2 Gram 2 GM/50 ML BAG IVPB ONE
[2019-04-13] MEDS ORDERED: SEVOFLURANE 250 ML INH ONE (08:32)
[2019-04-13] MEDS ORDERED: LIDOCAINE 2% MDV (20MG/ML) 20ML VIAL IV ONE (08:32)
[2019-04-13] MEDS ORDERED: FENTANYL PF 100MCG/2ML VIAL IV ONE (08:32)
[2019-04-13] MEDS ORDERED: 0.9 % SODIUM CHLORIDE 10 ML VIAL IVP ONE (08:32)
[2019-04-13] MEDS ORDERED: KETOROLAC 30 MG/ML VIAL IVP ONE (08:32)
[2019-04-13] MEDS ORDERED: DEXAMETHASONE 4 MG/ML 1ML VIAL IVP ONE (08:32)
[2019-04-13] MEDS ORDERED: PROPOFOL 10 MG/ML VIAL IV ONE (08:32)
[2019-04-13] MEDS ORDERED: MIDAZOLAM HCL 2MG/2ML VIAL IV ONE (08:32)
[2019-04-13] MEDS ORDERED: ROPIVACAINE HCL (NAROPIN) /PF 5MG/ML 20ML VIAL IV ONE (08:32)
[2019-04-13] MEDS ORDERED: ONDANSETRON HCL IV 4 MG/2 ML VIAL IVP ONE (08:32)
[2019-04-13] MEDS ORDERED: RINGERS SOLUTION,LACTATED 1,000 ML IV ONE ×2 (09:17→10:45)
[2019-04-13] MEDS ORDERED: BUPIVACAINE 0.25% W/EPI MPF 30ML VIAL SQ ONE (10:51)
[2019-04-13] MEDS ORDERED: HYDROCODONE/APAP 5/325MG TABLET PO ONE (11:34)
--- NOTE | 2019-04-13 17:30 | Operative Note ---
DATE OF SURGERY: 04/13/2019 SURGEON: Jim Gutiérrez DO PREOPERATIVE DIAGNOSIS: Reducible bilateral inguinal hernias. POSTOPERATIVE DIAGNOSIS: Reducible bilateral inguinal hernias, direct. OPERATION: Open bilateral inguinal herniorrhaphy with mesh. PROCEDURE: The patient is a 59-year-old male who was brought to the operating room and placed in a supine position. General anesthesia was administered per the department of anesthesia. The patient's inguinal region was shaved of hair and prepped and draped in a sterile fashion. At this time, adequate timeout was performed. He did receive preoperative inguinal block per department of anesthesia as well as antibiotic. Starting on the left, the skin was anesthetized with a total of 5 mL of 0.25% Sensorcaine with epinephrine. A 3.5 cm oblique incision was made. This was carried down to the aponeurosis of the external oblique. This was cleaned off. A janae was made with a scalpel blade and enlarged through the superficial inguinal ring with Metzenbaum scissors. Care was taken not to injure the underlying ilioinguinal nerve or spermatic cord. At this time, superior and inferior flaps were developed and a [place] was placed on the spermatic cord. This was dissected free from the underlying direct hernia and reflected in a cephalad direction. Clean circumferential fascial edges were obtained. Cremasteric fibers were taken down. There was no indirect hernia. At this time, the floor was imbricated in a Bassini-type fashion. Over this, a right-sided ProGrip mesh was placed. We had excellent overlap at the pubic tubercle. The mesh was pre-notched to accompany the deep inguinal ring. This was sutured in place with 2-0 Vicryl. The aponeurosis was then closed with 2-0 Vicryl, the Pedro layer was closed with 3-0 Vicryl, and skin was closed with 4-0 Vicryl. Attention now turned to the opposite side where an identical procedure was done. The patient had mirrored pathology with a direct hernia noted. Again, this was repaired in the exact same fashion. The patient was taken to the recovery room in stable condition. FINDINGS ON SURGERY: Bilateral inguinal hernias, direct, repaired as above. MTDD
== END 2019-04-13 12:07 | disposition home or self-care (01) ==
LOC: SUR 08:31
PROVIDERS: ATTEND Surgery
DX: K40.20 Bilateral inguinal hernia, without obstruction or gangrene, not specified as recurrent (principal); I48.91 Unspecified atrial fibrillation; Z79.01 Long term (current) use of anticoagulants; E78.00 Pure hypercholesterolemia, unspecified
CPT/HCPCS: 76942; J1885; J2405; J7120

== ENCOUNTER 2019-05-20 23:33 | Observation (INO) | payer BC ==
[2019-05-21] MEDS ORDERED: DILTIAZEM 25MG/5ML VIAL IV ONE (00:01)
[2019-05-21 00:12] LABS: ABSOLUTE NEUTROPHIL COUNT 4.48; BASO % 0.4 % (0-6); GRAN % 62.4 % (47-80); HEMATOCRIT 38.1 % (42.0-52.0); HEMOGLOBIN 11.8 gm/dl (14.0-18.0); LYMPH % 23.3 % (16-45); MEAN CELL VOLUME 96.2 fl (81-97); MEAN CORPUSCULAR HEMOGLOBIN 29.7 pg (27-33); MEAN PLATELET VOLUME 10.8 fl (7.4-10.4); MONO % 8.9 % (0-9); PLATELET COUNT 180 K/uL (130-400); RED BLOOD COUNT 3.96 M/uL (4.40-5.70); RED CELL DISTRIBUTION WIDTH 13.6 % (11.5-14.5); WHITE BLOOD COUNT W/O DIFF 7.2 K/uL (4.2-12.2)
--- NOTE | 2019-05-21 00:20 | Emergency Department Record ---
History of Present Illness - General Chief Complaint: Arrythmia/Palpitations Stated Complaint: AFIB Time Seen by Provider: 05/20/19 23:47 Source: Patient Mode of Arrival: Ambulatory Limitations: No limitations - History of Present Illness Initial Comments: pt was sitting on toilet when he noticed feeling lightheaded and the lights got dimmer. he thought he was in afib as this has happened to him before and he has passed out with it before. his checked him and found his hr to be irregular and at 164 MD Complaint: Atrial fibrillation, Irregular heart beat, Palpitations Onset/Timin -: Minutes(s) Context: Awoke with symptoms Arrythmia History: Atrial fibrillation Associated Symptoms: Denies other symptoms Treatments Prior to Arrival: Calcium channel ameya - Related Data Home Medications Medication Instructions Recorded Confirmed Last Taken Atorvastatin Calcium [Lipitor] 40 mg PO DAILY 05/20/19 05/20/19 Unknown Allergies Allergy/AdvReac Type Severity Reaction Status Date / Time No Known Drug Allergies Allergy Verified 05/20/19 23:47 Travel/Exposure Screening - Travel/Exposure Within Last 30 Days Have you traveled within the last 30 days?: No - Travel/Exposure Within Last Year Have you traveled outside the [place] in the last year?: No - Additonal Travel/Exposure Details Have you been exposed to anyone with a communicable illness?: No - Travel Symptoms Symptom Screening: None Review of Systems Reviewed: No additional complaints except as noted below Constitutional: Reports: As per HPI. Denies: Chills, Fever, Malaise, Night sweats, Weakness, Weight change Eyes: Reports: As per HPI. Denies: Eye discharge, Eye pain, Photophobia, Vision change ENT: Reports: As per HPI. Denies: Congestion, Dental pain, Ear pain, Epistaxis, Hearing loss, Throat pain Respiratory: Reports: As per HPI. Denies: Cough, Dyspnea, Hemoptysis, Stridor, Wheezes Cardiovascular: Reports: As per HPI, Arrhythmia, Palpitations. Denies: Chest pain, Dyspnea on exertion, Edema, Murmurs, Orthopnea, Paroxysmal nocturnal dyspnea, Rheumatic Fever, Syncope Endocrine: Reports: As per HPI. Denies: Fatigue, Heat or cold intolerance, Polydipsia, Polyuria Gastrointestinal: Reports: As per HPI. Denies: Abdominal pain, Constipation, Diarrhea, Hematemesis, Hematochezia, Melena, Nausea, Vomiting Genitourinary: Reports: As per HPI. Denies: Dysuria, Frequency, Hematuria, Incontinence, Retention, Testicular pain, Testicular mass, Urgency Musculoskeletal: Reports: As per HPI. Denies: Arthralgia, Back pain, Gout, Joint swelling, Myalgia, Neck pain Skin: Reports: As per HPI. Denies: Bruising, Change in color, Change in hair/nails, Lesions, Pruritus, Rash Neurological: Reports: As per HPI. Denies: Abnormal gait, Confusion, Headache, Numbness, Paresthesias, Seizure, Tingling, Tremors, Vertigo, Weakness Psychiatric: Reports: As per HPI. Denies: Anxiety, Auditory hallucinations, Depression, Homicidal thoughts, Suicidal thoughts, Visual hallucinations Hematological/Lymphatic: Reports: As per HPI. Denies: Anemia, Blood Clots, Easy bleeding, Easy bruising, Swollen glands Past Medical History - SOCIAL HISTORY Smoking Status: Never smoker Alcohol Use: None Drug Use Detail:: Marijuana - RESPIRATORY Hx Respiratory Disorders: Yes Hx Bronchitis: Yes - CARDIOVASCULAR Hx Cardio Disorders: Yes Hx Abnormal EKG: Yes Hx Irregular Heartbeat: Yes (A FIB 2 EPISODES 2018 RESOLVED W MEDS NO REOCCURANCE) - NEURO Hx Neuro Disorders: No Hx CVA: No - GI Hx GI Disorders: Yes Hx Abdominal Pain: No Hx Reflux: No Hx Hiatal Hernia: Yes Hx Nausea/Vomiting: No Hx of Polyps: Yes - Hx Genitourinary Disorders: No Hx Bladder Problem: No Hx Kidney Stones: No Hx Prostate Problems: No Hx Renal Disease: No Hx UTI: No - ENDOCRINE Hx Endocrine Disorders: No Hx Diabetes: No Hx Thyroid Disease: No - MUSCULOSKELETAL Hx Musculoskeletal Disorders: Yes Hx Arthritis: No - PSYCH Hx Psych Problems: No Hx Anxiety: No Hx Depression: No - HEMATOLOGY/ONCOLOGY Hx Hematology/Oncology Disorders: No Hx Bruising: No Hx Cancer: No Hx Chemotherapy: No Hx Radiation Therapy: No Hx Clotting Problems: No Hx Blood Transfusions: No Hx Blood Transfusion Reaction: No Family Medical History Any Significant Family History?: No Hx Stroke: Mother *Stroke Comment: age 49 Physical Exam - General General Appearance: Alert, Oriented x3, Cooperative, Mild distress - Head Head exam: Normal inspection - Eye Eye exam: Normal appearance, PERRL, EOMI Pupils: Normal accommodation - ENT ENT exam: Normal exam, Mucous membranes moist, Normal external ear exam, Normal orophraynx Ear exam: Normal external inspection. negative: External canal tenderness Nasal Exam: Normal inspection. negative: Discharge, Sinus tenderness Mouth exam: Normal external inspection, Tongue normal Teeth exam: Normal inspection. negative: Dental caries Throat exam: Normal inspection. negative: Tonsillar erythema, Tonsillar exudate - Neck Neck exam: Normal inspection, Full ROM. negative: Tenderness - Respiratory Respiratory exam: Normal lung sounds bilaterally. negative: Respiratory d istress - Cardiovascular Cardiovascular Exam: Normal heart sounds, Irregular rhythm, Tachycardia - GI/Abdominal GI/Abdominal exam: Soft, Normal bowel sounds. negative: Tenderness - Rectal Rectal exam: Deferred - exam: Deferred - Extremities Extremities exam: Normal inspection, Full ROM, Normal capillary refill. negative: Tenderness - Back Back exam: Reports: Normal inspection, Full ROM. Denies: Muscle spasm, Rash noted, Tenderness - Neurological Neurological exam: Alert, CN II-XII intact, Normal gait, Oriented X3 - Psychiatric Psychiatric exam: Normal affect, Normal mood - Skin Skin exam: Dry, Intact, Normal color, Warm Course Vital Signs 05/20/19 05/20/19 23:40 23:54 Temperature 97.8 F Pulse Rate [ 116 H 144 H Pulse Ox Probe] Respiratory 20 22 Rate Blood Pressure 172/91 127/73 [Left Arm] Pulse Ox 96 - Reevaluation(s) Reevaluation #1: 05/21/19 01:27 pt spontaneously converted tosr just as he was admitted Medical Decision Making - Lab Data Result diagrams: 05/21/19 00:00 05/21/19 00:00 Lab Results 05/21/19 Range/Units 00:00 WBC 7.2 (4.2-12.2) K/uL RBC 3.96 L (4.40-5.70) M/uL Hgb 11.8 L (14.0-18.0) gm/dl Hct 38.1 L (42.0-52.0) % MCV 96.2 (81-97) fl MCH 29.7 (27-33) pg MCHC 31.0 L (32-36) g/dl RDW 13.6 (11.5-14.5) % Plt Count 180 (130-400) K/uL MPV 10.8 H (7.4-10.4) fl Gran % 62.4 (47-80) % Lymphocytes % 23.3 (16-45) % Monocytes % 8.9 (0-9) % Eosinophils % 5.0 (0-6) % Basophils % 0.4 (0-6) % Absolute Neutrophils 4.48 Disposition Disposition: Admit Clinical Impression: Paroxysmal A-fib Disposition: Still a Patient at [facility] Decision to Admit: Admit from ER Decision to Admit Date: 05/21/19 Decision to Admit Time: 01:09 Forms: Patient Portal Access Quality - Quality Measures Quality Measures: N/A - Blood Pressure Screening Does Patient Have Any of the Following: No Blood Pressure Classification: Normal BP Reading Systolic Measurement: 111 Diastolic Measurement: 72 Screening for High Blood Pressure: < Normal BP, F/U Not Required > [G8783]
[2019-05-21 00:24] LABS: BLOOD UREA NITROGEN 16 mg/dL (6-20); EST GLOMERULAR FILTRATION RATE > 60 mL/min
[2019-05-21 00:25] LABS: TOTAL PROTEIN 7.1 g/dL (6.6-8.7)
[2019-05-21 00:27] LABS: GLUCOSE,RANDOM 103 mg/dL (74-109)
[2019-05-21 00:29] LABS: ALB/GLOB RATIO 1.5 (1.1-1.8); ALBUMIN 4.3 g/dL (4.0-5.0); ALKALINE PHOSPHATASE 52 U/L (40-129); ALT/SGPT 18 U/L (<41); AST/SGOT 18 U/L (10.0-50.0)
[2019-05-21 00:30] LABS: CREATINE PHOSPHOKINASE 228 U/L (39-308)
[2019-05-21 00:31] LABS: CKMB 2.6 ng/mL (<6.73)
[2019-05-21] MEDS ORDERED: HEPARIN SODIUM 1000 UNIT/1 ML 10ML VIAL IVP ONE (00:57)
[2019-05-21] MEDS ORDERED: HEPARIN SODIUM/D5W 25,000 UNITS/500 ML BAG IV SCH (01:00)
[2019-05-21] MEDS ORDERED: TEMAZEPAM 15 MG CAPSULE PO PRN (01:34)
[2019-05-21] MEDS ORDERED: ONDANSETRON 4 MG ODT TABLET PO SCH (01:34)
[2019-05-21] MEDS ORDERED: ACETAMINOPHEN 500 MG TABLET PO PRN (01:34)
[2019-05-21] MEDS ORDERED: ONDANSETRON 4 MG ODT TABLET PO PRN (02:15)
[2019-05-21 08:21] LABS: THYROID STIMULATING HORMONE 2.58 uIU/mL (0.270-4.20)
[2019-05-21] MEDS ORDERED: ASPIRIN 81 MG TABEC PO SCH (10:00)
[2019-05-21] MEDS ORDERED: DILTIAZEM 180MG CR CAPSULE PO SCH (10:00)
--- NOTE | 2019-05-21 11:14 | History & Physical ---
History of Present Illness - Date of Service Date of Service for History & Physical: 05/21/19 - History of Present Illness Admitting Diagnosis: paroxsmal afib w lightheadedness History of Present Illness: Pt presented to ED after episode of feeling faint while he was on the commode. He states that he knew "something wasn't right" He was dx with a-fib roughly 1.5 years ago after syncopal episode. He states that he saw Dr. Sheppard outpt but hadn't had any issues since then. Pt was in A-fib in the ED with pulse of 150's. He spontaneously converted back to normal sinus rhythm just prior to receiving an additional dose of IV cardizem. He has been in sinus rhythm since then. He states that he had hernia surgery roughly 6 weeks ago. He did use norco for the first two weeks but no new medications since then. States that he doesn't use any drugs or alcohol. States that he is a non-smoker. Currently asymptomatic at this time. Labs: negative for abnormality. Current VS: wnl. Travel/Exposure Screening - Travel/Exposure Within Last 30 Days Have you traveled within the last 30 days?: No - Travel/Exposure Within Last Year Have you traveled outside the [place] in the last year?: No - Additonal Travel/Exposure Details Have you been exposed to anyone with a communicable illness?: No - Travel Symptoms Symptom Screening: None Review of Systems Constitutional: Reports: As per HPI. Denies: Chills, Fever, Malaise, Night swea ts, Weakness, Weight change Eyes: Reports: As per HPI. Denies: Eye discharge, Eye pain, Photophobia, Vision change ENT: Reports: As per HPI. Denies: Congestion, Dental pain, Ear pain, Epistaxis, Hearing loss, Throat pain Respiratory: Reports: As per HPI. Denies: Cough, Dyspnea, Hemoptysis, Stridor, Wheezes Cardiovascular: Reports: As per HPI, Arrhythmia, Palpitations. Denies: Chest pain, Dyspnea on exertion, Edema, Murmurs, Orthopnea, Paroxysmal nocturnal dyspnea, Rheumatic Fever, Syncope Endocrine: Reports: As per HPI. Denies: Fatigue, Heat or cold intolerance, P olydipsia, Polyuria Gastrointestinal: Reports: As per HPI, Abdominal pain (mild from hernia repair). Denies: Constipation, Diarrhea, Hematemesis, Hematochezia, Melena, Nausea, Vomiting Genitourinary: Reports: As per HPI. Denies: Dysuria, Frequency, Hematuria, Incontinence, Retention, Testicular pain, Testicular mass, Urgency Musculoskeletal: Reports: As per HPI. Denies: Arthralgia, Back pain, Gout, Joint swelling, Myalgia, Neck pain Skin: Reports: As per HPI. Denies: Bruising, Change in color, Change in hair/nails, Lesions, Pruritus, Rash Neurological: Reports: As per HPI. Denies: Abnormal gait, Confusion, Headache, Numbness, Paresthesias, Seizure, Tingling, Tremors, Vertigo, Weakness Psychiatric: Reports: As per HPI. Denies: Anxiety, Auditory hallucinations, Depression, Homicidal thoughts, Suicidal thoughts, Visual hallucinations Hematological/Lymphatic: Reports: As per HPI. Denies: Anemia, Blood Clots, Easy bleeding, Easy bruising, Swollen glands Past Medical History - SOCIAL HISTORY Smoking Status: Never smoker Alcohol Use: None Drug Use: None Drug Use Detail:: Marijuana - RESPIRATORY Hx Respiratory Disorders: Yes Hx Bronchitis: Yes - CARDIOVASCULAR Hx Cardio Disorders: Yes Hx Abnormal EKG: Yes Hx Irregular Heartbeat: Yes (A FIB 2 EPISODES 2018 RESOLVED W MEDS NO REOCCURANCE) - NEURO Hx Neuro Disorders: No Hx CVA: No - GI Hx GI Disorders: Yes Hx Abdominal Pain: No Hx Reflux: No Hx Hiatal Hernia: Yes Hx Nausea/Vomiting: No Hx of Polyps: Yes - Hx Genitourinary Disorders: No Hx Bladder Problem: No Hx Kidney Stones: No Hx Prostate Problems: No Hx Renal Disease: No Hx UTI: No - ENDOCRINE Hx Endocrine Disorders: No Hx Diabetes: No Hx Thyroid Disease: No - MUSCULOSKELETAL Hx Musculoskeletal Disorders: Yes Hx Arthritis: No - PSYCH Hx Psych Problems: No Hx Anxiety: No Hx Depression: No - HEMATOLOGY/ONCOLOGY Hx Hematology/Oncology Disorders: No Hx Bruising: No Hx Cancer: No Hx Chemotherapy: No Hx Radiation Therapy: No Hx Clotting Problems: No Hx Blood Transfusions: No Hx Blood Transfusion Reaction: No Family Medical History Any Significant Family History?: Yes Hx Stroke: Mother *Stroke Comment: age 49 H&P Meds/Allergies - Allergies Allergies: Allergies Allergy/AdvReac Type Severity Reaction Status Date / Time No Known Drug Allergies Allergy Verified 05/20/19 23:47 - Home Medications Home Medications Medication Instructions Recorded Confirmed Last Taken Atorvastatin Calcium [Lipitor] 40 mg PO QHS 05/20/19 05/21/19 05/20/19 22:00 - Active Medications Active Medications: Current Medications Acetaminophen (Tylenol 500mg Tab) 1,000 mg PO Q6H PRN PRN Reason: PAIN - MILD(1-4)/FEVER Aspirin (Ecotrin (Ec)) 81 mg PO DAILY [facility] Last Admin: 05/21/19 09:37 Dose: 81 mg Documented by: Atorvastatin Calcium (Lipitor) 40 mg PO QHS [facility] Diltiazem HCl (Cardizem Cd) 180 mg PO DAILY [facility] Last Admin: 05/21/19 09:37 Dose: 180 mg Documented by: Heparin Sodium/Dextrose (Heparin Sodium/D5w) 25,000 units in 500 mls @ 18.416 mls/hr IV TITRATE [facility]; Protocol Last Admin: 05/21/19 01:13 Dose: 14 units/kg/hr, 18.416 mls/hr Documented by: Ondansetron HCl (Zofran Odt) 4 mg PO Q8H PRN PRN Reason: NAUSEA/VOMITING Temazepam (Restoril) 15 mg PO QHS PRN PRN Reason: INSOMNIA Physical Exam - Vital Signs Vital Signs: Vital Signs - Last 24 Hrs Temp Pulse Resp BP Pulse Ox 05/21/19 07:59 98.6 F 67 16 102/65 97 05/21/19 04:00 98.6 F 70 16 94/56 98 05/21/19 01:34 98.7 F 82 18 106/66 97 05/21/19 01:10 83 18 123/73 05/21/19 00:44 92 H 20 111/72 05/21/19 00:20 114 H 20 134/68 05/20/19 23:54 144 H 22 127/73 05/20/19 23:40 97.8 F 116 H 20 172/91 96 - General General Appearance: Alert, Oriented x3, Cooperative, No acute distress Limitations: No limitations - Head Head exam: Normal inspection - Eye Eye exam: Normal appearance, EOMI Pupils: Normal accommodation - ENT ENT exam: Normal exam, Mucous membranes moist, Normal external ear exam, Normal orophraynx Ear exam: Normal external inspection. negative: External canal tenderness Nasal Exam: Normal inspection. negative: Discharge, Sinus tenderness Mouth exam: Normal external inspection, Tongue normal Teeth exam: Normal inspection. negative: Dental caries Throat exam: Normal inspection. negative: Tonsillar erythema, Tonsillar exudate - Neck Neck exam: Normal inspection, Full ROM. negative: Tenderness - Respiratory Respiratory exam: Normal lung sounds bilaterally. negative: Respiratory distress - Cardiovascular Cardiovascular Exam: Regular rate, Normal rhythm, Normal heart sounds - GI/Abdominal GI/Abdominal exam: Soft, Normal bowel sounds. negative: Tenderness - Rectal Rectal exam: Deferred - exam: Deferred - Extremities Extremities exam: Normal inspection, Full ROM, Normal capillary refill. negative: Tenderness - Back Back exam: Reports: Normal inspection, Full ROM. Denies: Muscle spasm, Rash noted, Tenderness - Neurological Neurological exam: Alert, CN II-XII intact, Normal gait, Oriented X3 - Psychiatric Psychiatric exam: Normal affect, Normal mood - Skin Skin exam: Dry, Intact, Normal color, Warm Results - Labs Result Diagrams: 05/21/19 00:00 05/21/19 00:00 Labs Last 24 Hours: Laboratory Results - last 24 hr 05/21/19 05/21/19 05/21/19 00:00 00:00 00:00 WBC 7.2 RBC 3.96 L Hgb 11.8 L Hct 38.1 L MCV 96.2 MCH 29.7 MCHC 31.0 L RDW 13.6 Plt Count 180 MPV 10.8 H Gran % 62.4 Lymphocytes % 23.3 Monocytes % 8.9 Eosinophils % 5.0 Basophils % 0.4 Absolute Neutrophils 4.48 APTT 25.9 Sodium 141 Potassium 4.1 Chloride 101 Carbon Dioxide 29.0 Anion Gap 11.0 BUN 16 Creatinine 1.0 Estimated GFR > 60 Random Glucose 103 Calcium 9.3 Magnesium Total Bilirubin 0.20 AST 18 ALT 18 Alkaline Phosphatase 52 Creatine Kinase 228 CK-MB (CK-2) 2.6 Troponin T < 0.010 Total Protein 7.1 Albumin 4.3 Globulin 2.8 Albumin/Globulin Ratio 1.5 TSH Free T4 05/21/19 05/21/19 05/21/19 04:00 04:00 10:10 WBC RBC Hgb Hct MCV MCH MCHC RDW Plt Count MPV Gran % Lymphocytes % Monocytes % Eosinophils % Basophils % Absolute Neutrophils APTT 66.3 H 39.4 H Sodium Potassium Chloride Carbon Dioxide Anion Gap BUN Creatinine Estimated GFR Random Glucose Calcium Magnesium 2.0 Total Bilirubin AST ALT Alkaline Phosphatase Creatine Kinase CK-MB (CK-2) Troponin T Total Protein Albumin Globulin Albumin/Globulin Ratio TSH 2.58 Free T4 1.22 VTE H&P Assessment - Risk for VTE Risk for VTE: Yes Risk Level: Low Risk Assessment Date: 05/21/19 Risk Assessment Time: 11:23 VTE Orders Placed or Will Be Placed: Yes Plan - Detailed Diagnosis and Plan (1) Paroxysmal A-fib Current Visit: Yes Status: Acute Base Code: I48.0 - PAROXYSMAL ATRIAL FIBRILLATION Comment: - Continue aspirin, Cardizem, Atorvastatin as prescribed. - heparin started by ED for anticoagulation. Likely aspirin is enough upon DC. CHADSVASC is 0. - cardio c/s'd - Tele on - Mag/tsh/ other labs wnl - Disposition Likely today after cardio recs.
--- NOTE | 2019-05-21 17:22 | Discharge Summary ---
Providers Discharge Summary Date: 05/21/19 Date of admission: 05/21/19 01:28 Expected Date of Discharge: 05/21/19 Attending physician: EMMANUEL ZEPEDA M.D. Primary care physician: Iggy Landa Consults: Consult Orders 05/21/19 01:34 Consult NOW Consulting Provider: Dean Sheppard Physician Instructions: Reason For Exam: paroxysmal afib Physical Exam - Vital Signs Vital Signs: Vital Signs - Last 24 Hrs Temp Pulse Resp BP Pulse Ox 05/21/19 11:40 98.9 F 74 16 109/68 96 05/21/19 09:00 67 16 05/21/19 07:59 98.6 F 67 16 102/65 97 05/21/19 04:00 98.6 F 70 16 94/56 98 05/21/19 01:34 98.7 F 82 18 106/66 97 05/21/19 01:10 83 18 123/73 05/21/19 00:44 92 H 20 111/72 05/21/19 00:20 114 H 20 134/68 05/20/19 23:54 144 H 22 127/73 05/20/19 23:40 97.8 F 116 H 20 172/91 96 - General General Appearance: Alert, Oriented x3, Cooperative, No acute distress Limitations: No limitations - Head Head exam: Normal inspection - Eye Eye exam: Normal appearance, EOMI Pupils: Normal accommodation - ENT ENT exam: Normal exam, Mucous membranes moist, Normal external ear exam, Normal orophraynx Ear exam: Normal external inspection. negative: External canal tenderness Nasal Exam: Normal inspection. negative: Discharge, Sinus tenderness Mouth exam: Normal external inspection, Tongue normal Teeth exam: Normal inspection. negative: Dental caries Throat exam: Normal inspection. negative: Tonsillar erythema, Tonsillar exudate - Neck Neck exam: Normal inspection, Full ROM. negative: Tenderness - Respiratory Respiratory exam: Normal lung sounds bilaterally. negative: Respiratory distress - Cardiovascular Cardiovascular Exam: Regular rate, Normal rhythm, Normal heart sounds - GI/Abdominal GI/Abdominal exam: Soft, Normal bowel sounds. negative: Tenderness - Rectal Rectal exam: Deferred - exam: Deferred - Extremities Extremities exam: Normal inspection, Full ROM, Normal capillary refill. negative: Tenderness - Back Back exam: Reports: Normal inspection, Full ROM. Denies: Muscle spasm, Rash noted, Tenderness - Neurological Neurological exam: Alert, CN II-XII intact, Normal gait, Oriented X3 - Psychiatric Psychiatric exam: Normal affect, Normal mood - Skin Skin exam: Dry, Intact, Normal color, Warm Hospitalization - Hospitalization Admission Diagnosis: paroxsmal afib w lightheadedness - Problem List/Discharge Diagnosis (1) Paroxysmal A-fib Status: Acute Base Code: I48.0 - PAROXYSMAL ATRIAL FIBRILLATION - Hospitalization Course Disposition: Home, Self-Care Hospital Course: Pt presented to ED after episode of feeling faint while he was on the commode. He states that he knew "something wasn't right" He was dx with a-fib roughly 1.5 years ago after syncopal episode. He states that he saw Dr. Sheppard outpt but hadn't had any issues since then. Pt was in A-fib in the ED with pulse of 150's. He spontaneously converted back to normal sinus rhythm just prior to receiving an additional dose of IV cardizem. He has been in sinus rhythm since then. He states that he had hernia surgery roughly 6 weeks ago. He did use norco for the first two weeks but no new medications since then. States that he doesn't use any drugs or alcohol. States that he is a non-smoker. Labs: all wnl including magnesium, TSH, free T4, CMP, and CBC VS: WNL Pt was seen by cardio PA and was suggested to increase his cardizem from 180QD to 240QD Pt was kept on aspirin and statin. He was D/C'd in sinus rhythm F/u with cardiology in 4-[address] Sheppard. Procedures: Cardiology Procedures 05/20/19 23:42 EKG NOW 05/21/19 01:34 EKG QDX2@0600 05/21/19 07:35 Telemetry [Health Social Work Professor] .Continuous Abnormal Labs: Abnormal Lab Results 05/21/19 05/21/19 05/21/19 Range/Units 00:00 04:00 10:10 RBC 3.96 L (4.40-5.70) M/uL Hgb 11.8 L (14.0-18.0) gm/dl Hct 38.1 L (42.0-52.0) % MCHC 31.0 L (32-36) g/dl MPV 10.8 H (7.4-10.4) fl APTT 66.3 H 39.4 H (24.5-39.1) SECONDS Condition at Discharge: (1) Good Discharge Medications - Discharge Medications Prescriptions: Diltiazem HCl [Diltiazem ER] 240 mg PO DAILY #90 cap.er.deg Home Medications: Ambulatory Orders Aspirin [Aspirin EC] 81 mg PO DAILY 12/15/17 [Last Taken 05/20/19 08:00] Atorvastatin Calcium [Lipitor] 40 mg PO QHS 05/20/19 [Last Taken 05/20/19 22:00] Diltiazem HCl [Diltiazem ER] 240 mg PO DAILY #90 cap.er.deg 05/21/19 [Last Taken Unknown] Discharge Plan - Discharge Instructions Activity at Discharge: Increase Activity as Tolerated Diet at Discharge: Regular Diet Instructions: A-fib (Atrial Fibrillation) (DC) Additional Instructions: Resume heart healthy home diet Resume activity as tolerated Resume home medications New dosage has been ordered for Cardizem CD now 240mg every day Follow-up with Dr Sheppard in 4-6 weeks If symptoms worsen or reoccur, please return to the nearest emergency department Thank you for choosing [facility]!! Quality Measures - Quality Measures Quality Measures: Atrial Fibrillation & Atrial Flutter: Chronic Anticoagulation Therapy, Documentation of Current Medications in Medical Record, Screening for High Blood Pressure and F/U Documented - Current Medications Quality Measure: Measure #130: Documentation of Current Medications Documentation of Current Medications: <Current Medications Documented/Reviewed> [G5473] - Blood Pressure Screening Quality Measure: Screening for High Blood Pressure and Follow-Up Documented Does Patient Have Any of the Following: No Blood Pressure Classification: Normal BP Reading Systolic Measurement: 119 Diastolic Measurement: 70 Screening for High Blood Pressure: < Normal BP, F/U Not Required > [G8783] - Atrial Fibrillation and Atrial Flutter Quality Measure: Atrial Fibrillation & Atrial Flutter: Chronic Anticoagulation Therapy Does Patient Have Any of the Following: No CHADS2 Risk Stratification: No Risk Factors Risk Stratification Summary: No risk factors or only one moderate risk factor exists. [G8970] Anticoagulation Therapy: Patient Not Eligible [G8970] - Elder Abuse Suspicion Index EASI Reference Information: Tamika GORDON, Jeremy C, Janette D, Дмитрий Bernard.Development and validation of a tool to assist physicians identification of elder abuse: The Elder Abuse Suspicion Index (EASI ). Journal of Elder Abuse and Neglect, 2008; 20 (3): 276-300.
[2019-05-21] MEDS ORDERED: ATORVASTATIN 20 MG TABLET PO SCH (22:00)
--- NOTE | 2019-05-22 07:48 | Cardiology Consult ---
DATE OF CONSULTATION: 05/21/2019 REASON FOR CONSULTATION: Paroxysmal atrial fibrillation. HISTORY OF PRESENT ILLNESS: This is a very pleasant 59-year-old male who presented to [facility] after feeling faint while he was on the commode. He felt lightheaded and dizzy. He denied any chest pain, dyspnea, orthopnea or PND. When he presented he was noted to be in atrial fibrillation with a rate of approximately 150 b.p.m. He spontaneously converted back to normal sinus rhythm. The patient has been maintaining sinus rhythm since that time. The patient had hernia surgery approximately six weeks ago and has recovered from that. He denies any current alcohol or tobacco abuse. The patient had previous episode of atrial fibrillation several years ago and has not had any noted recurrence. His CHADS VAS score is 0. He has been maintaining sinus rhythm on aspirin 81 mg daily and Cardizem CD 180 mg daily. He denies missing any doses. The patient's noninvasive work-up at that time demonstrated an echocardiogram that demonstrated preserved LV function with mild LVH and mild mitral regurg and enlarged left atrial size. He underwent a treadmill stress test in which he achieved 11 METS of workload and did not show any evidence of ischemia and at that time had undergone 48-Hour Holter monitoring which did not show any other significant arrhythmias. It has been greater than two years since patient has had any known episodes of atrial fibrillation. REVIEW OF SYSTEMS: Constitutional - Denies any fevers, chills, recent illness, or significant weight change. HEENT - No change in vision. No change in hearing. No congestion. No epistaxis. No difficulty swallowing. Respiratory - Denies any shortness of breath, cough, or hemoptysis. Cardiovascular - Positive palpitations. Positive lightheadedness. Denies chest pain, exertional dyspnea, or edema. Gastrointestinal - Denies any constipation, diarrhea or melena. Genitourinary - Denies any dysuria or hematuria. Musculoskeletal - Denies any arthralgia or back pain. Skin - Denies any rash or bruising. Neurological - Denies any abnormal gait, confusion or headache, numbness, or paresthesias. Psychiatric - Denies any anxiety or depression. Hematological - Denies any anemia, blood clots or easy bleeding. SOCIAL HISTORY: Patient denies previous smoking history. Denies alcohol or illicit drug use. He does use marijuana. FAMILY HISTORY: Positive for stroke in his mother. ALLERGIES: No known drug allergies. HOME MEDICATIONS: Atorvastatin 40 mg p.o. q.h.s, Cardizem CD 180 mg daily, and aspirin 81 mg daily. CURRENT MEDICATIONS: Tylenol 500 mg p.o. prn, aspirin 81 mg daily, Lipitor 40 mg p.o. q.h.s., Cardizem CD 180 mg daily, heparin drip, Zofran, and Restoril. PHYSICAL EXAMINATION: Vital signs - Blood pressure 102/65, pulse 67, O2 saturation 97%, respirations 16, previous blood pressure 123/73. GENERAL: The patient is alert and oriented times three. He answers questions appropriately. He does not appear to be in any acute distress. HEENT: Normocephalic, atraumatic. Extraocular movements are intact. Pupils are equal and round. NECK: Supple without lymphadenopathy, thyromegaly or bruit. CARDIAC: Regular rate and rhythm. No significant murmurs are appreciated. LUNGS: Clear to auscultation in the lung otero without rales, rhonchi or wheezing. ABDOMEN: Soft, nontender. Bowel sounds are present in all four quadrants. EXTREMITIES: No edema, 2+ pulses bilaterally. SKIN: Warm and dry. DIAGNOSTIC STUDIES: Laboratories - WBC 7.2, hemoglobin 1.8, hematocrit 38.1, platelet count 180, sodium 141, potassium 4.1, chloride 101, CO2 of 29, BUN 16, creatinine 1.0, glucose 103, TSH within normal limits, Troponin negative. EKG - Normal sinus rhythm with no acute changes. ASSESSMENT/PLAN: PAROXYSMAL ATRIAL FIBRILLATION. WILL CONTINUE ASPIRIN THERAPY PATIENT'S CHADS VAS SCORE IS 0. WILL INCREASE PATIENT'S HOME DOSE OF CARDIZEM TO CARDIZEM CD 240 MG Q DAY. IF THE PATIENT HAS RECURRENT EPISODES OF ATRIAL FIBRILLATION CONSIDERATION COULD BE GIVEN TO STARTING FLECAINIDE 50 MG P.O. B.I.D. REQUESTED THAT THE PATIENT FOLLOW-UP IN OUR OFFICE IN THE NEXT FOUR TO SIX WEEKS. HE WAS INSTRUCTED TO CONTACT OUR OFFICE IF HE SHOULD HAVE ANY FURTHER CONCERNS PRIOR TO HIS NEXT SCHEDULED VISIT. Thank you for the opportunity to participate in this patient's care. JOB [facility]BER: [id number] [facility]
== END 2019-05-21 18:25 | disposition home or self-care (01) ==
LOC: ER 23:33 → MEDSURG 05-21 01:28
PROVIDERS: ADMIT Family Medicine; ATTEND Family Medicine
DX: I48.0 Paroxysmal atrial fibrillation (principal); R00.2 Palpitations; H53.8 Other visual disturbances; R42 Dizziness and giddiness
CPT/HCPCS: 80053; 82550; 82553; 83735; 84439; 84443; 84484; 85025; 85730; 93005; 93010; 96374; 96375; 99220; 99285